=== PATIENT | female | born 1990 | race Hispanic/Latino ===

== ENCOUNTER 2021-05-25 19:42 | Emergency (ER) | payer MEDICAID ==
[~2021-05-25] VITALS: Ht 165.1 cm; Wt 104.3 kg
[2021-05-25 19:43] VITALS: BP 153/108
[2021-05-25 21:18] VITALS: BP 147/92
[2021-05-25] MEDS ORDERED: IBUPROFEN 600 MG TABLET PO ONE (21:30)
[2021-05-25] MEDS ORDERED: IBUP-2070 PO (22:19)
[2021-05-25] MEDS ORDERED: D-ME118S47 PO (22:19)
[2021-05-25] MEDS ORDERED: ACET-66 PO (22:19)
[2021-05-25] MEDS ORDERED: GUAIFENESIN-CODEINE 5 ML SYRUP PO ONE (22:30)
[2021-05-25] MEDS ORDERED: IBUPROFEN 600 MG TABLET ONE (22:57)
== END 2021-05-25 23:01 | disposition home or self-care (01) ==
LOC: EDH 19:42
DX: U07.1 COVID-19 (principal); R05 Cough; Z98.51 Tubal ligation status; Z79.899 Other long term (current) drug therapy
CPT/HCPCS: 87635; 87804 ×2; 87880; 99283; C9803